=== PATIENT | female | born 1965 | race Two or more races ===

== ENCOUNTER 2017-04-17 12:34 | Inpatient (IN) | payer BC ==
[2017-04-17 14:22] LABS: Urine Appearance Clear; Urine Blood Negative (Negative); Urine Color Straw; Urine Ketones Negative (Negative); Urine Protein Negative (Negative); Urine Specific Gravity 1.003 (1.010-1.030); Urine Urobilinogen Negative (Negative)
--- NOTE | 2017-04-17 14:32 | RAD ---
HISTORY: Difficulty with speech and memory COMPARISONS: Head CT dated September 10, 2013, MRI dated April 13, 2014 TECHNIQUE: Multiple contiguous axial CT scans were obtained of the head without intravenous contrast. Coronal and sagittal multiplanar reformations are also submitted for review. FINDINGS: HEMORRHAGE/INFARCT: There is a large right frontoparietal subdural hematoma. This is intermediate attenuation suggestive of a subacute subdural hematoma measuring 2.1 cm in depth. Elsewhere, there is no hemorrhage or acute infarct. MASSES/SHIFT: There is 1.7 cm of subfalcine shift to the left. There is effacement of the basal cisterns, with effacement of the basal cisterns and uncal herniation on the right. EXTRA-AXIAL SPACES: As noted above, there is a large right subacute frontoparietal subdural hematoma measuring 2.1 cm in depth SULCI AND VENTRICLES: There is effacement of the right lateral ventricle and third ventricle. There is enlargement of the temporal horn of left lateral ventricle suggestive of a trapped ventricle. CEREBRUM: There is mass effect on the right frontal and parietal lobes from the subdural hematoma. As noted above, there is subfalcine and transtentorial herniation. BRAINSTEM: There is adjacent of the basal cisterns as noted above. CEREBELLUM: There are no focal parenchymal abnormalities. VESSELS: The vessels are grossly normal. PARANASAL SINUSES: The paranasal sinuses are clear. ORBITS: The orbits are unremarkable. BONES AND SOFT TISSUE: No bone or soft tissue abnormalities are noted. OTHER: None IMPRESSION: THERE IS A LARGE RIGHT FRONTOPARIETAL SUBACUTE SUBDURAL HEMATOMA MEASURING 2.1 CM IN DEPTH. THERE IS 1.7 CM OF SUBFALCINE SHIFT TO THE LEFT WITH EFFACEMENT OF THE BASAL CISTERNS AND TRANSTENTORIAL HERNIATION ON THE RIGHT. THERE IS ENLARGEMENT OF THE LEFT LATERAL VENTRICLE, SUGGESTIVE OF A TRAPPED VENTRICLE. PRELIMINARY FINDINGS WERE DISCUSSED WITH DR. HUBBARD IN THE EMERGENCY DEPARTMENT AT APPROXIMATELY 2:25 PM ON APRIL 17, 2012.
--- NOTE | 2017-04-17 14:33 | RAD ---
HISTORY: Altered mental status COMPARISONS: July 30, 2009 VIEWS: 1: frontal portable view of the chest at 2:22 PM FINDINGS: LINES AND TUBES: None. CARDIOMEDIASTINAL SILHOUETTE: The cardiomediastinal silhouette is normal for portable technique. PLEURA: The costophrenic angles are sharp. No pleural abnormalities are noted. LUNG PARENCHYMA: The lungs are clear. ABDOMEN: The upper abdomen is clear. There is no subphrenic gas. BONES AND SOFT TISSUES: The patient is status post anterior cervical fusion. IMPRESSION: NO ACTIVE CARDIOPULMONARY DISEASE.
[2017-04-17 14:46] LABS: ABS Basophils 0 10^3/ul (0-0.2); ABS Eosinophils 0.2 10^3/ul (0-0.6); ABS Lymphocytes 1.4 10^3/ul (1.0-4.8); ABS Monocytes 0.5 10^3/ul (0-0.8); ABS Neutrophils 4.2 10^3/ul (1.5-7.7); ABS Nucleated RBC 0 10^3/ul; Eosinophil % 2.5 % (0-6); Hematocrit 36 % (35-47); Hemoglobin 11.9 g/dl (12.0-16.0); Lymphocyte % 22.8 % (25-47); Mean Corpuscular HGB Conc 33 g/dl (31-36); Mean Corpuscular Hemoglobin 29 pg (27-31); Mean Corpuscular Volume 87 fL (80-97); Mean Platelet Volume 9 um3 (7.4-10.4); Nucleated Red Blood Cells % 0; Platelet Count 198 10^3/ul (150-450); Red Blood Count 4.15 10^6/ul (4.0-5.4); Red Cell Distribution Width 13 % (10.5-15); White Blood Count 6.3 10^3/ul (3.5-10.8)
[2017-04-17] MEDS ORDERED: levETIRAcetam IV* 1,500 MG in NS 0.9% 100 ML* 100 ML IVPB ONE (14:55)
--- NOTE | 2017-04-17 14:58 | RAD ---
HISTORY: Difficulty ambulating COMPARISONS: MRI dated February 20, 2014 TECHNIQUE: Multiple contiguous axial CT scans were obtained of the cervical spine without intravenous contrast, with coronal and sagittal multiplanar reformations. FINDINGS: BRAIN: The visualized brain is unremarkable CENTRAL CANAL: Evaluation of the central canal is limited on CT technique and by streak artifact from fixation hardware; however, there is no obvious canalicular mass or epidural hemorrhage. ALIGNMENT: There is straightening with mild reversal of the normal cervical lordosis. VERTEBRAL BODIES: The patient is status post anterior cervical fusion at C5, C6, C7. There is anterolateral marginal osteophyte formation at C4-C5. There is no appreciable hardware failure or osteolysis. JOINTS: There is multicentric vertebral and facet osteoarthritis most pronounced at C5-C6 and C6-C7. MUSCULATURE: Unremarkable INTERVERTEBRAL DISCS: There is diffuse loss of intervertebral disc height. AXIAL IMAGES: C2-C3: There is no osseous neural foraminal narrowing or central canal stenosis. C3-C4: There is mild right neural foraminal narrowing. There is no osseous central canal stenosis. C4-C5: There is a broad-based disc bulge that is eccentric to the left. There is bilateral uncovertebral hypertrophy. There is moderate left and mild right neural foraminal narrowing. There is mild narrowing of the central canal. C5-C6: There is a central posterior osteophyte along the superior endplate of C6 measuring 0.3 cm in depth. There is no significant neural foraminal narrowing or central canal stenosis. C6-C7: There is bilateral uncovertebral hypertrophy. There is mild left neural foraminal narrowing. There is no osseous central canal stenosis. C7-T1: There is no osseous neural foraminal narrowing or central canal stenosis. SOFT TISSUES: The visualized soft tissues of the neck are unremarkable. The prevertebral fat stripe is preserved. OTHER: None. IMPRESSION: 1. STATUS POST ANTERIOR CERVICAL FUSION. 2. DEGENERATIVE DISC DISEASE AND OSTEOARTHRITIS. 3. THERE IS MILD NARROWING OF CENTRAL CANAL AT C4-C5. 4. THERE IS NEUROFORAMINAL NARROWING DESCRIBED ABOVE.
[2017-04-17 15:01] LABS: EGFR Non-African American 79.3 (>60)
[2017-04-17 15:05] LABS: INR 0.94 (0.77-1.02)
[2017-04-17] MEDS: NS 0.9% 1000 ML* 1,000 ML IV SCH ×2 (15:26→21:52)
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
[2017-04-17] MEDS ORDERED: Mannitol 25% (12.5 GM) 50 ML* 12.5 GM/50 ML VIAL ONE (16:16)
[2017-04-17] MEDS ORDERED: Artificial Tear OPHTH.OINT* 3.5 GM ONE (16:16)
[2017-04-17] MEDS ORDERED: Propofol* 500 MG/50 ML BTL ONE (16:19)
[2017-04-17] MEDS ORDERED: Dexamethasone IV* 4 MG/ML 1 ML (4 MG) ONE (16:19)
[2017-04-17] MEDS ORDERED: Lidocaine 2% PF * 5 ML VIAL ONE (16:19)
[2017-04-17] MEDS ORDERED: Propofol* 10 MG/ML 20 ML BTL IV PUSH ONE ×2 (16:19→19:49)
[2017-04-17] MEDS ORDERED: Phenylephrine INJ* 10 MG/ML 1 ML VIAL (10 MG) ONE (16:19)
[2017-04-17] MEDS ORDERED: Ondansetron INJ* 2 MG/ML VIAL ONE (16:19)
[2017-04-17] MEDS ORDERED: Remifentanil* 2 MG VIAL ONE (16:20)
[2017-04-17] MEDS ORDERED: fentaNYL* 50 MCG/ML 2 ML VIAL (100 MCG VIAL) ONE ×2 (16:20→20:25)
[2017-04-17] MEDS ORDERED: Midazolam* 1 MG/ML 5 ML VIAL (5 MG) ONE (16:20)
[2017-04-17] MEDS ORDERED: Rocuronium* 10 MG/ML VIAL ONE (16:20)
[2017-04-17] MEDS ORDERED: Sodium Chloride 0.9%* 10 ML ONE (16:21)
[2017-04-17] MEDS ORDERED: Lidocaine 1% MPF wEPI 200,000* 30 ML SDV ONE (17:03)
[2017-04-17] MEDS ORDERED: Thrombin 5,000 UNITS* 1 APPLIC KIT - topical use - TOPICAL ONE (17:03)
[2017-04-17] MEDS ORDERED: ceFAZolin 2 GM (*##) 2 GM/100 ML BAG USE CEFA2SOL IVPB ONE (17:12)
[2017-04-17] MEDS ORDERED: Famotidine IV* 10 MG/ML 2 ML (20 mg) ONE (18:13)
[2017-04-17] MEDS ORDERED: fentaNYL* 50 MCG/ML 2 ML VIAL (100 MCG VIAL) IV PRN (18:48)
[2017-04-17] MEDS ORDERED: Acetaminophen IV 1GM/100ML * 1,000 MG/100 ML VIAL IVPB ONE (18:48)
[2017-04-17] MEDS ORDERED: Naloxone* 0.4 MG/ML 1 ML VIAL IV PRN (18:48)
[2017-04-17] MEDS ORDERED: Ondansetron INJ* 2 MG/ML VIAL IV PRN ×2 (18:48→19:50)
[2017-04-17] MEDS ORDERED: Glycopyrrolate IV* 0.2 MG/ML 1 ML VIAL ONE (19:44)
[2017-04-17] MEDS ORDERED: Neostigmine Methylsulfate* 2 MG/2 ML SYRINGE ONE (19:44)
[2017-04-17] MEDS ORDERED: Labetalol IV* 5 MG/ML 20 ML VIAL ONE (19:49)
[2017-04-17] MEDS ORDERED: Acetaminophen TAB* 325 MG PO PRN (19:50)
[2017-04-17] MEDS ORDERED: Acetaminophen IV 1GM/100ML * 0 ML ONE (20:25)
[2017-04-17] MEDS: levETIRAcetam TAB* 500 MG PO SCH (22:19)
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
[2017-04-18] MEDS: HYDROcodone/ACETAMIN 5-325 MG* 1 TAB PO PRN ×2 (06:35→20:56)
[2017-04-18] MEDS: Levothyroxine TAB* 50 MCG TAB PO SCH (06:35)
[2017-04-18] MEDS: levETIRAcetam TAB* 500 MG PO SCH ×2 (07:45→20:57)
[2017-04-18] MEDS: Cyanocobalamin TAB* 500 MCG PO SCH (07:45)
--- NOTE | 2017-04-18 08:11 | RAD ---
INDICATION: Subdural hematoma-status post evacuation COMPARISON: CT brain April 17, 2017 TECHNIQUE: Noncontrast axial source images were acquired from the skull base to the vertex. FINDINGS: Ventricles/sulci: The atria of the left lateral ventricle appears slightly less pronounced consistent with decreased trapping and the subfalcine herniation to the left now measures 0.9 cm which represents an interval reduction. Brain parenchyma: Persistent mass effect sulci right cerebral hemisphere appearing slightly less pronounced. Intracranial hemorrhage:None. Extra-axial spaces: Interval surgery with partial evacuation of the right-sided subdural hematoma which now measures 11 mm in maximum transverse dimension. Small amount of pneumocephalus consistent with surgery. Calvarium: Right temporoparietal craniotomy. Scalp: There is no evidence of scalp or extracalvarial soft tissue abnormality. Paranasal sinuses/mastoid: The paranasal sinuses and mastoid air cells are clear. Other: None. IMPRESSION: Interval right-sided craniotomy with partial evacuation of right frontoparietal subdural hematoma. There is decreased mass effect as described
--- NOTE | 2017-04-18 08:16 | PN ---
Progress Note - Progress Note Date of Service: 04/18/17 SOAP: Subjective: [S/p right frontal craniotomy with drain placement for SDH evacuation, POD#1. States that she is feeling ok this morning. Reports minimal headache, improved with pain meds. Denies nausea, chest pain, dizziness. ] Objective: [ Vital Signs: Temp Pulse Resp BP Pulse Ox 101.2 F 87 21 120/70 98 04/18/17 07:20 04/18/17 07:36 04/18/17 07:36 04/18/17 07:36 04/18/17 07:36 General: Alert and oriented to person, place and date. Neuro: Speech is slightly slurred but also language barrier. Pupils equal and reactive. Strength and sensation intact. No pronator drift. Negative hoffmans and no ankle clonus. Extremities: Pulses 2+ and equal. Incision: Intact with desiree. Subdural drain pulled back 1cm, not functioning well. ARAM in place. Subcutaneous wound drain 04/17/17 04/17/17 04/17/17 20:07 20:35 22:00 Output, ARAM #1 40 50 55 04/18/17 04/18/17 04/18/17 00:04 03:21 05:37 Output, ARAM #1 20 20 10 04/18/17 07:52 Output, ARAM #1 15 ] Assessment: [Stable postop right frontal craniotomy for SDH evacuation.] Plan: [1. Continue neuro checks. 2. May sit up in bed to 30 degrees for meals, otherwise no greater than 15 degrees. 3. Advance diet. 4. Continue pain management.]
[2017-04-18 09:15] LABS: ABS Basophils 0.1 10^3/ul (0-0.2); ABS Eosinophils 0 10^3/ul (0-0.6); ABS Lymphocytes 1.3 10^3/ul (1.0-4.8); ABS Monocytes 0.8 10^3/ul (0-0.8); ABS Neutrophils 7.8 10^3/ul (1.5-7.7); ABS Nucleated RBC 0 10^3/ul; Eosinophil % 0.2 % (0-6); Hematocrit 33 % (35-47); Hemoglobin 11.2 g/dl (12.0-16.0); Mean Corpuscular HGB Conc 34 g/dl (31-36); Mean Corpuscular Hemoglobin 29 pg (27-31); Mean Corpuscular Volume 86 fL (80-97); Mean Platelet Volume 9 um3 (7.4-10.4); Nucleated Red Blood Cells % 0; Platelet Count 193 10^3/ul (150-450); Red Blood Count 3.84 10^6/ul (4.0-5.4); Red Cell Distribution Width 13 % (10.5-15); White Blood Count 9.9 10^3/ul (3.5-10.8)
[2017-04-18 09:29] LABS: EGFR Non-African American 88.6 (>60)
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
--- NOTE | 2017-04-18 22:11 | PN ---
Progress Note - Progress Note Date of Service: 04/18/17 SOAP: Subjective: []No events. Patient is doing well. Back to her baseline per family. In ICU Objective: []Wound s,c,d. ARAM drainage noted. SD drain minimal drainage. DRain flushed under sterile technique. Functioning after flushing. VSS. Afebrile. AAOx3, JACY, CN II-XII grossly intact. Motor 5/5. No pronator drift. Sensory grossly intact to light touch. Assessment: []52 yof POD#1 Right craniotomy for SDH evacuation. Plan: []Monitor VS, Neurochecks. CT revealed significant improvement in midline shift. CT in am. Monitor drain output. Discussed in extend with patient's family at bedside. Appreciate IM / ICU Management. May benefit from w/up for occult coagulopathy. Nicci Stephens MD
[2017-04-19] MEDS: Levothyroxine TAB* 50 MCG TAB PO SCH (05:25)
[2017-04-19 05:44] LABS: ABS Basophils 0.1 10^3/ul (0-0.2); ABS Eosinophils 0.1 10^3/ul (0-0.6); ABS Lymphocytes 1.8 10^3/ul (1.0-4.8); ABS Monocytes 0.5 10^3/ul (0-0.8); ABS Neutrophils 3.9 10^3/ul (1.5-7.7); ABS Nucleated RBC 0 10^3/ul; Eosinophil % 1.9 % (0-6); Hematocrit 34 % (35-47); Hemoglobin 11.3 g/dl (12.0-16.0); Lymphocyte % 28.3 % (25-47); Mean Corpuscular HGB Conc 33 g/dl (31-36); Mean Corpuscular Hemoglobin 29 pg (27-31); Mean Corpuscular Volume 87 fL (80-97); Mean Platelet Volume 9 um3 (7.4-10.4); Nucleated Red Blood Cells % 0; Platelet Count 172 10^3/ul (150-450); Red Blood Count 3.91 10^6/ul (4.0-5.4); Red Cell Distribution Width 13 % (10.5-15); White Blood Count 6.4 10^3/ul (3.5-10.8)
[2017-04-19 06:04] LABS: EGFR Non-African American 88.6 (>60)
--- NOTE | 2017-04-19 08:29 | RAD ---
HISTORY: Follow-up postop subdural hematoma evacuation COMPARISONS: April 18, 2017, April 17, 2017 TECHNIQUE: Multiple contiguous axial CT scans were obtained of the head without intravenous contrast. FINDINGS: HEMORRHAGE/INFARCT: There is no parenchymal hemorrhage. There is no acute infarct. MASSES/SHIFT: There is subfalcine shift to the left of approximately 0.7 cm. This has further decreased when compared to the 2 most recent previous examinations. The basal cisterns are preserved with resolution of the transtentorial herniation noted on the April 17, 2017 examination. There is no mass. EXTRA-AXIAL SPACES: There is a right frontoparietal subacute subdural hematoma. This is decreased in size compared to the April 17, 2009 examination is similar to the most recent previous examination. Surgical drain is noted. This measures up to 1.3 cm in depth. SULCI AND VENTRICLES: The sulci and ventricles are normal in size and position for the patient's stated age. CEREBRUM: There are no focal parenchymal abnormalities. BRAINSTEM: There are no focal parenchymal abnormalities. CEREBELLUM: There are no focal parenchymal abnormalities. VESSELS: The vessels are grossly normal. PARANASAL SINUSES: The paranasal sinuses are clear. ORBITS: The orbits are unremarkable. BONES AND SOFT TISSUE: There is postsurgical change to the skull. OTHER: None IMPRESSION: STATUS POST RIGHT CRANIOTOMY AND PARTIAL DRAINAGE OF A RIGHT FRONTOPARIETAL SUBDURAL HEMATOMA. THE RESIDUAL SUBDURAL IS STABLE. THERE IS PERSISTENT BUT DECREASING SUBFALCINE SHIFT..
[2017-04-19] MEDS: Cyanocobalamin TAB* 500 MCG PO SCH (09:37)
[2017-04-19] MEDS: levETIRAcetam TAB* 500 MG PO SCH ×2 (09:37→20:40)
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
--- NOTE | 2017-04-19 11:25 | PN ---
Progress Note - Progress Note Date of Service: 04/19/17 SOAP: Subjective: []No events ON. Patient is doing well. In ICU. Objective: []Wound s,c,d. ARAM drainage noted. SD drain noted. Under sterile technique SD drain was removed. Catheter appeared to be intact. Patient tolerated procedure well. VSS. Afebrile. AAOx3, JACY, CN II-XII grossly intact. Motor 5/5. No pronator drift. Sensory grossly intact to light touch. Assessment: []52 yof POD#2 Right craniotomy for SDH evacuation. Plan: []Monitor VS, Neurochecks. CT stable. Monitor drain output. Advance diet as tolerated. Appreciate IM / ICU Management. Nicci Stephens MD
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
[2017-04-20] MEDS: Levothyroxine TAB* 50 MCG TAB PO SCH (05:46)
[2017-04-20 06:06] LABS: ABS Basophils 0.1 10^3/ul (0-0.2); ABS Eosinophils 0.3 10^3/ul (0-0.6); ABS Lymphocytes 2.1 10^3/ul (1.0-4.8); ABS Monocytes 0.6 10^3/ul (0-0.8); ABS Neutrophils 3.5 10^3/ul (1.5-7.7); ABS Nucleated RBC 0 10^3/ul; Eosinophil % 3.9 % (0-6); Hematocrit 37 % (35-47); Hemoglobin 12.1 g/dl (12.0-16.0); Mean Corpuscular HGB Conc 33 g/dl (31-36); Mean Corpuscular Hemoglobin 29 pg (27-31); Mean Corpuscular Volume 87 fL (80-97); Mean Platelet Volume 8 um3 (7.4-10.4); Nucleated Red Blood Cells % 0.1; Platelet Count 194 10^3/ul (150-450); Red Blood Count 4.21 10^6/ul (4.0-5.4); Red Cell Distribution Width 14 % (10.5-15); White Blood Count 6.5 10^3/ul (3.5-10.8)
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
[2017-04-20] MEDS: levETIRAcetam TAB* 500 MG PO SCH ×2 (09:14→21:02)
[2017-04-20] MEDS: Cyanocobalamin TAB* 500 MCG PO SCH (09:14)
--- NOTE | 2017-04-20 19:38 | PN ---
Progress Note - Progress Note Date of Service: 04/20/17 SOAP: Subjective: []No events ON. Patient is doing well. In ICU. Objective: []Wound s,c,d. ARAM drainage noted. Under sterile technique ARAM drain was removed. Catheter appeared to be intact. Patient tolerated procedure well. VSS. Afebrile. AAOx3, JACY, CN II-XII grossly intact. Motor 5/5. No pronator drift. Sensory grossly intact to light touch. Assessment: []52 yof POD#3 Right craniotomy for SDH evacuation. Plan: []Monitor VS, Neurochecks. CT in am. If stable may transfer to floor from NS standpoint. DC planning Appreciate IM / ICU Management. Nicci Stephens MD
[2017-04-21] MEDS: Levothyroxine TAB* 50 MCG TAB PO SCH (06:27)
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
[2017-04-21] MEDS: levETIRAcetam TAB* 500 MG PO SCH ×2 (08:49→20:32)
[2017-04-21] MEDS: Cyanocobalamin TAB* 500 MCG PO SCH (08:49)
--- NOTE | 2017-04-21 12:10 | RAD ---
INDICATION: Subdural hematoma postop craniotomy. COMPARISON: Comparison is made with prior studies from April 17, 2017 and April 19, 2017. TECHNIQUE: Contiguous axial sections of the brain were obtained from the skull base to the vertex without contrast. FINDINGS: The patient is status post right frontal craniotomy and subdural drainage. There has been removal of a subdural catheter. The subdural hematomas the right frontoparietal region and has mixed components of hemorrhage. There are areas of fluid density and also areas of higher hemorrhagic density. The hematoma measures an average approximately 7 mm in thickness and unchanged from the prior exam. There is compression of the lateral ventricles and approximately 8 mm of subfalcine herniation which is unchanged.. The visualized portion of the paranasal sinuses and mastoid air cells appear clear. IMPRESSION: STATUS POST RIGHT FRONTAL CRANIOTOMY AND DRAINAGE OF A RIGHT FRONTAL PARIETAL SUBDURAL HEMATOMA. THE RESIDUAL SUBDURAL HEMATOMA IS STABLE. THERE IS SUBFALCINE HERNIATION WHICH IS UNCHANGED.
--- NOTE | 2017-04-21 20:31 | PN ---
Progress Note - Progress Note Date of Service: 04/21/17 SOAP: Subjective: []No events ON. Patient is doing well. On regular floor. Ambulated. Voids, Tolerates PO well. Wants to go home. Objective: []Wound s,c,d. VSS. Afebrile. AAOx3, JACY, CN II-XII grossly intact. Motor 5/5. No pronator drift. Sensory grossly intact to light touch. Assessment: []52 yof POD#4 Right craniotomy for SDH evacuation. Plan: [] Monitor VS, Neurochecks. CT stable. DC planning. Appreciate IM Management. Nicci Stephens MD
[2017-04-22] MEDS: Levothyroxine TAB* 50 MCG TAB PO SCH (06:04)
[2017-04-22] MEDS: levETIRAcetam TAB* 500 MG PO SCH ×2 (08:46→18:59)
[2017-04-22] MEDS: Cyanocobalamin TAB* 500 MCG PO SCH (08:46)
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
[2017-04-22 17:27] VITALS: BP 124/77
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
== END 2017-04-22 19:20 | disposition home or self-care (01) | DRG 20 ==
LOC: ED 12:34 → OR 19:25 → ICU 21:00 → SSU 04-21 10:02
PROVIDERS: ADMIT Internal Medicine; ATTEND Internal Medicine
PROC: 0WC10ZZ Extirpation of Matter from Cranial Cavity, Open Approach (ICD-10-PCS; principal; 2017-04-17 18:14)
DX: S06.5X9A Traumatic subdural hemorrhage with loss of consciousness of unspecified duration, initial encounter (principal); G93.5 Compression of brain; J98.11 Atelectasis; Z98.1 Arthrodesis status; Z82.49 Family history of ischemic heart disease and other diseases of the circulatory system; M19.90 Unspecified osteoarthritis, unspecified site; Z83.3 Family history of diabetes mellitus; E03.9 Hypothyroidism, unspecified; Z87.820 Personal history of traumatic brain injury; D64.9 Anemia, unspecified; V29.9XXA Motorcycle rider (driver) (passenger) injured in unspecified traffic accident, initial encounter; Y92.9 Unspecified place or not applicable; G89.29 Other chronic pain; I62.03 Nontraumatic chronic subdural hemorrhage; R53.1 Weakness; M43.17 Spondylolisthesis, lumbosacral region; E11.39 Type 2 diabetes mellitus with other diabetic ophthalmic complication; I51.7 Cardiomegaly; H40.9 Unspecified glaucoma
CPT/HCPCS: 36415; 70450; 71045; 72125; 80048; 80053; 80307; 80320; 80329; 81003; 82140; 82550; 82553; 83605; 83690; 83735; 83880; 84443; 84484; 85025; 85610; 85730; 86140; 86850; 86900; 86901; 87641; 93005; 94760; 99284; A9270-GY; C1713; C1776; G0480; J1100; J2001; J2150; J2250; J2405; J2704; J3010